=== PATIENT | male | born 1990 | race Caucasian/White ===

== ENCOUNTER 2024-12-14 13:15 | Emergency (ER) | payer MEDICAID, SELFPAY ==
--- NOTE | 2024-12-14 13:24 | XR_ITS ---
Examination: AP chest single view Technique: AP portable sitting chest single view Date and time: December 14, 2024, 1336 hrs. Indications: Chest pain today. Findings: The film does not include the lower right lateral chest. Normal heart size The lungs are clear. The osseous structures are intact Impression: Limited study No pneumonia or pulmonary edema
--- NOTE | 2024-12-14 13:24 | EKG_ITS ---
[facility] Test Date: 2024-12-14 Pat Name: LAURA BUSTILLOS Department: Room: - Gender: Male Marker Hand: : 1990 Requested By: Tenisha Aguilar Order Number: [id number] Reading MD: Tenisha Aguilar Measurements Intervals [place] Rate: 116 P: 66 [place]: 116 QRS: 68 QRSD: 91 T: 60 QT: 295 QTc: 411 Interpretive Statements SINUS TACHYCARDIA WITH SHORT WI INTERVAL ABNORMAL RHYTHM ECG No previous ECG available for comparison /store/S0/[id number]
[2024-12-14 13:25] VITALS: BP 109/72; PULSE 122; RESP 18; TEMP 36.9; O2SAT 96
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
[2024-12-14 13:26] VITALS: BMI 27.7
[2024-12-14 16:00] LABS: Basophils # (Auto) 0.1 Thou/mm3 (0.0-0.2); Basophils % (Auto) 1 % (0-2.5); Eosinophils # (Auto) 0.1 Thou/mm3 (0.0-0.5); Eosinophils % (Auto) 1 % (0-10); Hematocrit 41.4 % (41.0-53.0); Hemoglobin 14.8 g/dL (13.5-16.0); Immature Granulocytes Auto 0.04 Thou/mm3 (0.00-0.00); Lymphocytes # (Auto) 1.9 Thou/mm3 (1.0-4.8); Lymphocytes % (Auto) 26 % (10-50); Mean Corpuscular HGB Conc 35.7 g/dl (31.0-37.0); Mean Corpuscular Hemoglobin 29.8 pg (25.0-35.0); Mean Corpuscular Volume 83 fL (80-100); Monocytes # (Auto) 0.4 Thou/mm3 (0.0-0.8); Monocytes % (Auto) 6 % (0-12); Neutrophils # (Auto) 4.7 Thou/mm3 (1.8-7.7); Neutrophils % (Auto) 65 % (37-80); Nucleated Red Blood Cell # 0.00 Thou/mm3 (0.00-0.00); Nucleated Red Blood Cell % 0 /100 WBC (0); Platelet Count 232 Thou/mm3 (140-440); RDW Standard Deviation 42.4 fL (35.1-43.9); Red Blood Count 4.97 Miln/mm3 (4.50-5.90); White Blood Count 7.2 Thou/mm3 (3.8-10.6)
[2024-12-14 16:24] LABS: Alanine Aminotransferase 22 U/L (10-49); Albumin, Serum 4.3 gm/dL (3.5-5.0); Albumin/Globulin Ratio 1.7 (1.2-2.2); Alkaline Phosphatase 95 U/L (46-116); Anion Gap 12 (7-16); Aspartate Amino Transferase 25 U/L (0-34); BUN/Creatinine Ratio 11 Ratio (12-20); Bilirubin,Total 0.6 mg/dL (0.3-1.2); Blood Urea Nitrogen 10 mg/dL (9-23); Calcium 9.0 mg/dL (8.3-10.6); Calcium (Corrected) 9.0 mg/dL (8.5-10.1); Carbon Dioxide 20.2 mMol/L (20.0-31.0); Chloride 104 mMol/L (98-107); Creatinine (Component) 0.9 mg/dL (0.6-1.3); Estimated Creatinine Clearance 148.1 mL/min (>60); Globulin 2.6 gm/dL (2.3-3.5); Glucose 312 mg/dL (74-106); Lipase 84 U/L (12-53); Osmolality,Calculated 282 (275-295); Potassium 4.4 mMol/L (3.4-5.1); Sodium 136 mMol/L (136-145); Total Protein 6.9 gm/dL (5.7-8.2); Troponin I < 0.020 ng/mL (0.0-0.045); eGFR > 60 See Note
== END 2024-12-14 16:50 ==
PROVIDERS: Physician Assistant Medical; Emergency Provider Emergency Medicine
DX: Z02.89 Encounter for other administrative examinations (principal); E11.65 Type 2 diabetes mellitus with hyperglycemia; R07.9 Chest pain, unspecified; R00.0 Tachycardia, unspecified
CPT/HCPCS: 36415; 71045; 80053; 83690; 84484; 85025; 93005; 99283

== ENCOUNTER 2024-12-16 18:16 | Emergency (ER) | payer MEDICAID, SELFPAY ==
[2024-12-16 18:21] VITALS: BP 148/94; PULSE 81; PULSE 85; RESP 13; RESP 18; TEMP 37.4; O2SAT 96; BMI 25.7
--- NOTE | 2024-12-16 18:21 | EKG_ITS ---
[facility] Test Date: 2024-12-16 Pat Name: LAURA BUSTILLOS Department: Room: - Gender: Male Surgery Scheduler: : 1990 Requested By: ED Temporary Provider Order Number: [id number] Reading MD: ED Temporary Provider Measurements Intervals [place] Rate: 77 P: 59 [place]: 122 QRS: 78 QRSD: 96 T: 74 QT: 367 QTc: 416 Interpretive Statements SINUS RHYTHM Compared to ECG 12/14/2024 13:34:08 Sinus tachycardia no longer present Short [place] interval no longer present /store/S0/[id number]/[id number]
[2024-12-16 18:24] VITALS: BP 140/78; PULSE 89; RESP 18; TEMP 36.8; O2SAT 97
[2024-12-16 18:26] VITALS: BMI 27.7
--- NOTE | 2024-12-16 18:50 | XR_ITS ---
Examination: AP chest single view TECHNIQUE: AP portable sitting chest single view Date and time: December 16, 2024 1903 hours INDICATIONS: Chest pain today. FINDINGS: Normal heart size. The lungs are clear. Mild elevation right hemidiaphragm. No pneumonia or pulmonary edema. IMPRESSION: No active disease.
[2024-12-16 19:13] LABS: Basophils # (Auto) 0.1 Thou/mm3 (0.0-0.2); Basophils % (Auto) 1 % (0-2.5); Eosinophils # (Auto) 0.1 Thou/mm3 (0.0-0.5); Eosinophils % (Auto) 1 % (0-10); Hematocrit 38.5 % (41.0-53.0); Hemoglobin 13.8 g/dL (13.5-16.0); Immature Granulocytes Auto 0.02 Thou/mm3 (0.00-0.00); Lymphocytes # (Auto) 1.8 Thou/mm3 (1.0-4.8); Lymphocytes % (Auto) 25 % (10-50); Mean Corpuscular HGB Conc 35.8 g/dl (31.0-37.0); Mean Corpuscular Hemoglobin 29.7 pg (25.0-35.0); Mean Corpuscular Volume 83 fL (80-100); Monocytes # (Auto) 0.5 Thou/mm3 (0.0-0.8); Monocytes % (Auto) 6 % (0-12); Neutrophils # (Auto) 4.9 Thou/mm3 (1.8-7.7); Neutrophils % (Auto) 67 % (37-80); Nucleated Red Blood Cell # 0.00 Thou/mm3 (0.00-0.00); Nucleated Red Blood Cell % 0 /100 WBC (0); Platelet Count 228 Thou/mm3 (140-440); RDW Standard Deviation 39.8 fL (35.1-43.9); Red Blood Count 4.64 Miln/mm3 (4.50-5.90); White Blood Count 7.2 Thou/mm3 (3.8-10.6)
--- NOTE | 2024-12-16 19:13 | PD.EDCHEST ---
ED Chest Pain RME/HPI General Chief Complaint: Shortness of Breath/Dyspnea Stated Complaint: CHEST PAIN Time Seen by Provider: 12/16/24 18:48 Arrival date/time: 12/16/24 18:16 RME / HPI RME / HPI narrative: DR. VILLEGAS MAIN ED EVALUATION: 34 y/o male with Hx of Type II DM and [place] presents to ED c/o chest pain, shortness of breath, abdominal pain, nausea, and cough x approximately 3 days. Patient endorses a gurgling sensation in his upper abdomen. Patient reports foul smelling and oily bowel movements. Denies diarrhea. Denies fever. Patient is currently on Zyprexa, Prozac, Metformin, and Novolog. States he has recently missed doses of his medications. Related Data Allergies Allergy/AdvReac Type Severity Reaction Status Date / Time No Known Allergies Allergy Verified 12/17/24 08:26 Review of Systems Review of Systems Systems Reviewed: All systems reviewed, normal except as documented Past Medical History Past Medical History ENDOCRINE: Positive Diabetes Mellitus Type 2 PSYCHO/SOCIAL: Positive Depression Social History SMOKING STATUS: Current some day smoker ED Exam Narrative Physical exam: GENERAL APPEARANCE: alert and oriented x 4, well-developed, well-nourished, no acute distress, appears to have poor hygeine VITALS: All vitals were reviewed and the pulse ox is 97% on room air, which is normal according to my interpretation. HEENT: Normocephalic, atraumatic; pupils equal, round, reactive to light; EOMI; mucous membranes pink, moist; oropharynx clear NECK: Supple LUNGS: CTABL; no wheezes, no rales, no rhonchi HEART: Regular rate, regular rhythm; normal S1, S2; no murmurs ABDOMEN: non distended; normal BS; soft, no tenderness, no guarding, no rebound; no masses, no organomegaly, no hernia BACK: no CVA tenderness EXTREMITIES: atraumatic; no edema NEUROLOGIC: awake; alert and oriented x4; cranial nerves II-XII grossly intact; no focal sensory or motor deficits PSYCHIATRIC: appropriate mood and affect SKIN: warm, dry, normal color; no rashes Course Course Course Narrative: CXR is ordered for determining the etiology of shortness of breath. Patient states that he is starting to hear voices. Requesting evaluation by psychiatry. Offered for patient to discuss with social work in AM. Home dose of zyprexa given. Quality Measures none Orders Category Date Time Status Bedside Blood Glucose Q1HR Care 12/16/24 20:26 Completed Hospital Secretary NOW Care 12/16/24 18:50 Completed EKG (ED ONLY) *Do not use* NOW Care 12/16/24 18:21 Completed EKG (ED Only) Stat Exams 12/16/24 18:21 Draft XR chest 1V portable Stat Exams 12/16/24 18:50 Completed Alcohol, Blood Medical Stat Lab 12/16/24 18:50 Completed B-Type Natriuretic Peptide Stat Lab 12/16/24 18:50 Completed Blood Culture (Lab) Stat Lab 12/16/24 18:50 Results CBC Stat Lab 12/16/24 18:50 Completed Comprehensive Metabolic Panel Stat Lab 12/16/24 18:50 Completed Drug Screen,Urine Stat Lab 12/16/24 19:30 Completed Lactate (Lactic Acid) Stat Lab 12/16/24 20:58 Completed Lipase Stat Lab 12/16/24 18:50 Completed Magnesium Stat Lab 12/16/24 18:50 Completed Partial Thromboplastin Time Stat Lab 12/16/24 18:50 Completed Procalcitonin Stat Lab 12/16/24 18:50 Completed Prothrombin Time with INR Stat Lab 12/16/24 18:50 Completed Troponin I Stat Lab 12/16/24 18:50 Completed UA, C/S IF [Urinalysis, C/S if Indicated] Stat Lab 12/16/24 19:30 Completed Magnesium Oxide [Mag-Ox 400] Med 12/16/24 21:41 Discontinued 800 mg PO X1 ONE Magnesium Sulfate 2 GM Ivpb [Magnesium Sulfate Ivpb] Med 12/16/24 20:42 Discontinued 2 gm in 50 ml IV X1 OLANZapine INJ [Zyprexa Inj] 10 mg Med 12/16/24 21:47 Discontinued Sterile Water 2.1 ml IM NOW OLANZapine [ZyPREXA] Med 12/16/24 21:25 Discontinued 20 mg PO X1 ONE Sodium Chloride 0.9% 1000 ml [Ns] 1,000 ml Med 12/16/24 18:54 Discontinued IV 999 mls/hr Sodium Chloride 0.9% 1000 ml [Ns] 1,000 ml Med 12/16/24 20:08 Discontinued IV 999 mls/hr Vital Signs Vital signs: Vital Signs Temperature 99.4 F 12/16/24 18:21 Pulse Rate 81 12/16/24 18:21 Respiratory Rate 13 12/16/24 18:21 Blood Pressure 148/94 H 12/16/24 18:21 Pulse Oximetry (%) 96 12/16/24 18:21 Oxygen Delivery Method Room Air 12/16/24 18:21 Chest Pain MDM Narrative MDM Narrative:: Scribe Attestation: I, Diane Ramirez, am scribing for and in the presence of Dr. Villegas. Provider Notation: Although this document has been carefully reviewed, there may still be some phonetic and other typographical errors.? These errors are purely grammatical due to imperfections in the software program and should not be construed in any way to? compromise the substance of the patient's medical care during this visit. Patient data External records reviewed:: [facility] previous records (Reviewed prior ED records from 12/14/24. Patient was seen for Acute hyperglycemia.) and EMS form Clinical information provided by:: patient and EMS Social determinants that could affect healthcare access:: mental health (Depression) Patient has the following chronic illnesses:: Depression, Type II DM How is presenting disease/condition affected by chronic disease/condition?: no chronic disease Evaluation data The following diagnostics were reviewed and interpreted by me:: lab results, radiology exam(s) and EKG tracing(s) (EKG manual reading, my interpretation: sinus rhythm, rate: 77 bpm, no ST elevation, no acute ischemic changes.) Lab and/or radiology exams considered but not ordered:: None Interpretation Summary: RADIOLOGY Chest X-Ray: FINDINGS: Normal heart size. The lungs are clear. Mild elevation right hemidiaphragm. No pneumonia or pulmonary edema. IMPRESSION: No active disease. Medications / Prescriptions Medications or Prescriptions considered but not ordered:: None Medication administrations:: Medication Administration History Discontinued Medications Olanzapine 10 mg/ Sterile (Water 2.1 ml) 0 mg IM NOW ONE Stop: 12/16/24 21:48 Last Admin: 12/16/24 22:50 Dose: Not Given Documented By: CORY Non-Admin Reason: Other, see note Comments: already given po Sodium Chloride (Ns) 1,000 mls @ 999 mls/hr IV .Q1H1M ONE Stop: 12/16/24 19:54 Last Infusion: 12/16/24 20:00 Dose: Infused Documented By: Admin: 12/16/24 19:25 Dose: 999 mls/hr Documented By: JOSH Sodium Chloride (Ns) 1,000 mls @ 999 mls/hr IV .Q1H1M ONE Stop: 12/16/24 21:08 Last Infusion: 12/16/24 22:05 Dose: Infused Documented By: Admin: 12/16/24 20:55 Dose: 999 mls/hr Documented By: CORY Magnesium Sulfate (Magnesium Sulfate Ivpb) 2 gm in 50 mls @ 25 mls/hr IV X1 ONE Stop: 12/16/24 22:41 Last Admin: 12/16/24 21:44 Dose: 25 mls/hr Documented By: CORY Magnesium Oxide (Magnesium Oxide 400 Mg Tablet) 800 mg PO X1 ONE Stop: 12/16/24 21:42 Last Admin: 12/16/24 22:49 Dose: Not Given Documented By: CORY Non-Admin Reason: Other, see note Comments: already given IV Olanzapine (Olanzapine 5 Mg Tablet) 20 mg PO X1 ONE Stop: 12/16/24 21:26 Last Admin: 12/16/24 22:08 Dose: 20 mg Documented By: BHAKTI See above Consultations Consultation(s) initiated? (list below): No Diagnosis Chest Pain Differential Diagnosis: pneumothorax, stable angina, unstable angina pectoris, atypical chest pain, costochondritis, chest pain, biliary colic and other (Hyperglycemia, Dehydration) Most likely diagnosis given after review of the tests above:: Mild dehydration, Hyperglycemia, Hypomagnesemia Admission Indicated Admission indicated?: not indicated Explain why admission is indicated or not indicated:: Patient does not meet admission criteria. Admission Request Was there a request for admission?: No Disposition Plan Disposition Plan: Discharge Discharge Attestation Discharge Attestation: The patient and all family members were given an opportunity to ask questions and understood the discharge instructions. Discharge instructions specifically effects, indications for sooner follow up or return to the emergency department, and the expected course of current diagnosis. Patient condition: Stable Discharge Plan Plan Patient Disposition: HOME (Self Care) Prescriptions/Referrals Referrals: No Primary/Family,Physician [Primary Care Provider] - In 1 week Problem List Clinical Impression: Dehydration, mild, Hyperglycemia, Hypomagnesemia Patient/Caregiver Discharge Instructions Education Materials: ED Diabetes with High Blood Sugar, ED Dehydration (Adult) Print Language: Salvadorean Stand Alone Forms: [employer]anka Award Info., Patient Portal Info Letter
[2024-12-16 19:23] LABS: INR 1.0 (0.9-1.3); Partial Thromboplastin Time 23.9 Seconds (22.0-36.0); Prothrombin Time 11.0 Seconds (9.0-12.2)
[2024-12-16] MEDS: SODIUM CHLORIDE 0.9% 1000 ML 1,000 ML 999 ML IV ×2 (19:25→20:55)
[2024-12-16 19:27] LABS: B-Type Natriuretic Peptide 35 pg/mL (0-100)
[2024-12-16 19:30] VITALS: BP 132/90; PULSE 76; RESP 17; O2SAT 95
[2024-12-16 19:42] LABS: Collection Type, Urine Clean Catch; Squamous Epithelial Cell,Urine 0 /hpf (0-5)
[2024-12-16 20:00] VITALS: BP 163/110; PULSE 76; RESP 17; O2SAT 97
[2024-12-16 20:01] LABS: Amorphous Crystals,Urine Present (Absent); Bacteria,Urine Rare; Bilirubin,Urine Negative (Negative); Blood,Urine Negative (Negative); Clarity,Urine Clear (Clear/Hazy); Color,Urine Lt-Yellow (Lt Yel-Yel); Culture Indicated,Urine Not Indicated; Glucose, Urine 4+ (Negative); Ketones,Urine Negative (Negative); Leukocyte Esterase,Urine Negative (Negative); Nitrite,Urine Negative (Negative); PH,Urine 7.0 (5.0-7.0); Protein,Urine Negative (Neg - Trace); RBC,Urine 2 /hpf (0-3); Specific Gravity,Urine 1.038 (1.001-1.035); Urobilinogen,Urine Negative mg/dL (0.0-1.0); WBC,Urine < 1 /hpf (0-5)
[2024-12-16 20:22] LABS: Alanine Aminotransferase 17 U/L (10-49); Albumin, Serum 3.9 gm/dL (3.5-5.0); Albumin/Globulin Ratio 1.6 (1.2-2.2); Alcohol, Blood Medical < 10.0 mg/dL (0-10.0); Alkaline Phosphatase 88 U/L (46-116); Anion Gap 10 (7-16); Aspartate Amino Transferase 17 U/L (0-34); BUN/Creatinine Ratio 14 Ratio (12-20); Bilirubin,Total 0.5 mg/dL (0.3-1.2); Blood Urea Nitrogen 11 mg/dL (9-23); Calcium 8.9 mg/dL (8.3-10.6); Calcium (Corrected) 9.0 mg/dL (8.5-10.1); Carbon Dioxide 25.9 mMol/L (20.0-31.0); Chloride 100 mMol/L (98-107); Creatinine (Component) 0.8 mg/dL (0.6-1.3); Estimated Creatinine Clearance 166.6 mL/min (>60); Globulin 2.4 gm/dL (2.3-3.5); Glucose 391 mg/dL (74-106); Lipase 39 U/L (12-53); Magnesium 1.5 mg/dL (1.6-2.6); Osmolality,Calculated 287 (275-295); Potassium 3.9 mMol/L (3.4-5.1); Procalcitonin < 0.04 ng/ml (0.0-0.49); Sodium 136 mMol/L (136-145); Total Protein 6.3 gm/dL (5.7-8.2); Troponin I < 0.020 ng/mL (0.0-0.045); eGFR > 60 See Note
[2024-12-16 20:23] LABS: Amphetamine/Methamp Scrn,U Negative (Negative); Barbiturate Screen,Urine Negative (Negative); Benzodiazepines Screen,Urine Negative (Negative); Benzoylecgonine Screen, Ur Negative (Negative); Fentanyl Screen,Urine Negative (Negative); Opiate Screen,Urine Negative (Negative); THC Screen,Urine Positive (Negative)
[2024-12-16 21:00] VITALS: BP 132/89; PULSE 76; RESP 20; O2SAT 95
[2024-12-16 21:02] LABS: Lactate (Lactic Acid) 0.9 mMol/L (0.4-2.0)
[2024-12-16] MEDS: Magnesium Sulfate 2 GM Ivpb 2 GM/50 ML BAG IV (21:44)
[2024-12-16 22:00] VITALS: BP 152/95; PULSE 77; RESP 16; O2SAT 96
== END 2024-12-16 23:41 | disposition home or self-care (01) ==
PROVIDERS: Emergency Provider Emergency Medicine
DX: E86.0 Dehydration (principal); E11.65 Type 2 diabetes mellitus with hyperglycemia; E83.42 Hypomagnesemia; R07.9 Chest pain, unspecified; R00.0 Tachycardia, unspecified
CPT/HCPCS: 36415; 71045; 80053; 80307; 80320; 81001; 83605; 83690; 83735; 83880; 84145; 84484; 85025; 85610; 85730; 87040; 87177; 87209; 87329; 87338; 93005; 96360; 99284; J3475; J7030; A9270; G0480

== ENCOUNTER 2024-12-17 08:23 | Emergency (ER) | payer MEDICAID, SELFPAY ==
[2024-12-17 08:25] VITALS: BMI 27.7
[2024-12-17 08:32] VITALS: BP 142/80; PULSE 97; RESP 18; TEMP 36.7; O2SAT 99
--- NOTE | 2024-12-17 08:52 | EDRME_ITS ---
Rapid Medical Screening Exam RME Arrival date/time: 12/17/24 08:23 Chief Complaint: Suicidal Time Seen by Provider: 12/17/24 08:32 Vital signs: Vital Signs Temperature 98.0 F 12/17/24 08:32 Pulse Rate 97 12/17/24 08:32 Respiratory Rate 18 12/17/24 08:32 Blood Pressure 142/80 H 12/17/24 08:32 Pulse Oximetry (%) 99 12/17/24 08:32 Oxygen Delivery Method Room Air 12/17/24 08:32 Pulse ox room air 99% Vital signs reviewed by provider: Yes RME Narrative: 34-year-old male presents to the ED with a complaint of suicidal ideation. Tima nagy also tells me that he hears voices telling him to kill himself. Patient had chest pain earlier in the week denies chest pain presently.
[2024-12-17 09:28] LABS: Basophils # (Auto) 0.1 Thou/mm3 (0.0-0.2); Basophils % (Auto) 2 % (0-2.5); Eosinophils # (Auto) 0.1 Thou/mm3 (0.0-0.5); Eosinophils % (Auto) 2 % (0-10); Hematocrit 41.9 % (41.0-53.0); Hemoglobin 14.6 g/dL (13.5-16.0); Immature Granulocytes Auto 0.01 Thou/mm3 (0.00-0.00); Lymphocytes # (Auto) 1.5 Thou/mm3 (1.0-4.8); Lymphocytes % (Auto) 32 % (10-50); Mean Corpuscular HGB Conc 34.8 g/dl (31.0-37.0); Mean Corpuscular Hemoglobin 30.2 pg (25.0-35.0); Mean Corpuscular Volume 87 fL (80-100); Monocytes # (Auto) 0.3 Thou/mm3 (0.0-0.8); Monocytes % (Auto) 7 % (0-12); Neutrophils # (Auto) 2.7 Thou/mm3 (1.8-7.7); Neutrophils % (Auto) 56 % (37-80); Nucleated Red Blood Cell # 0.00 Thou/mm3 (0.00-0.00); Nucleated Red Blood Cell % 0 /100 WBC (0); Platelet Count 200 Thou/mm3 (140-440); RDW Standard Deviation 41.0 fL (35.1-43.9); Red Blood Count 4.83 Miln/mm3 (4.50-5.90); White Blood Count 4.8 Thou/mm3 (3.8-10.6)
[2024-12-17 09:55] LABS: Alanine Aminotransferase 17 U/L (10-49); Albumin, Serum 4.2 gm/dL (3.5-5.0); Albumin/Globulin Ratio 1.8 (1.2-2.2); Alkaline Phosphatase 83 U/L (46-116); Anion Gap 8 (7-16); Aspartate Amino Transferase 15 U/L (0-34); BUN/Creatinine Ratio 10 Ratio (12-20); Bilirubin,Total 0.5 mg/dL (0.3-1.2); Blood Urea Nitrogen 9 mg/dL (9-23); Calcium 9.0 mg/dL (8.3-10.6); Calcium (Corrected) 9.0 mg/dL (8.5-10.1); Carbon Dioxide 30.5 mMol/L (20.0-31.0); Chloride 101 mMol/L (98-107); Creatinine (Component) 0.9 mg/dL (0.6-1.3); Estimated Creatinine Clearance 148.1 mL/min (>60); Globulin 2.4 gm/dL (2.3-3.5); Glucose 315 mg/dL (74-106); Osmolality,Calculated 288 (275-295); Potassium 4.3 mMol/L (3.4-5.1); Sodium 139 mMol/L (136-145); Total Protein 6.6 gm/dL (5.7-8.2); eGFR > 60 See Note
[2024-12-17 10:39] VITALS: BP 139/76; PULSE 71; RESP 18; TEMP 36.6; O2SAT 98
[2024-12-17 15:07] LABS: Collection Type, Urine Clean Catch; RBC,Urine 0 /hpf (0-3); Squamous Epithelial Cell,Urine 0 /hpf (0-5); WBC,Urine 0 /hpf (0-5)
[2024-12-17 15:21] LABS: Alcohol, Urine Negative (Negative); Amphetamine/Methamp Scrn,U Negative (Negative); Barbiturate Screen,Urine Negative (Negative); Benzodiazepines Screen,Urine Negative (Negative); Benzoylecgonine Screen, Ur Negative (Negative); Fentanyl Screen,Urine Negative (Negative); Opiate Screen,Urine Negative (Negative); THC Screen,Urine Positive (Negative)
--- NOTE | 2024-12-17 15:47 | PC.CC ---
Patient is a 34 year-old year old male who presents to the hospital for suicidal ideations. Meri made [id number] contact with patient to complete assessment. ASW introduced self, role, and reason for assessment. ASW disclosed limits of confidentiality as well. Patient appeared alert and oriented to self, place, and situation. Patient made appropriate eye contact with this service writer advisor, presented as depressed with a flat affect. Patient reports he has been having suicidal ideations for the past 3 days with plan and intention to jump off a bridge or on-coming traffic. Patient disclosed he has been having command auditory hallucinations telling him to go murder himself. Per patient, today he could no longer take the voices telling him to harm himself. Per patient, he is from [place], [place] and has been homeless in [facility] [facility] for approximately a month. Patient reports he has not family in [place]. 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 Patient reports he used to be connected and was prescribed Zyprexa and Prozac. At the time of encounter the patient continues to endorse suicidal ideations. Patient denied homicidal ideations, visual and auditory hallucinations. Patient reports he had a suicide attempt 2 years go by OD of a bottle of Aspirin. Patient reports the last time he was on a 5150-hold was approximately a year ago but does not recall what he was placed on a hold for. Patient scored High Risk on the Kaufman Screening. Patient is able to complete his own ADLs and Ambulates independently. Patient reports he is Type 1 Diabetic independent. ASW inquired if this service writer advisor could make contact with his mother, Sivan Flores for collateral information. Patient reports he does not give permission for this service writer advisor to make contact with his mother. ASW discussed safety planning with patient. Patient reports he is afraid for his life and does not think he could keep himself safe. Upon clinical consultation with NETSUITE CONSULTANT, Lauren Velez patient will be placed on a 5150-hold for Danger to Self. ASW provided advisement of 5150-hold to the patient and provided patient with patient?s right handbook. Patient was receptive to advisement. ASW provided update to medical team of 5150-hold and discharge plan to [facility] Facility. ASW to send referral via [employer].
[2024-12-17 15:58] LABS: Bilirubin,Urine Negative (Negative); Blood,Urine Negative (Negative); Clarity,Urine Clear (Clear/Hazy); Color,Urine Lt Yellow (Lt Yel-Yel); Culture Indicated,Urine Not Indicated; Glucose, Urine 3+ (Negative); Ketones,Urine Trace (Negative); Leukocyte Esterase,Urine Negative (Negative); Nitrite,Urine Negative (Negative); PH,Urine 7.5 (5.0-7.0); Protein,Urine Negative (Neg - Trace); Specific Gravity,Urine 1.015 (1.001-1.035); Urobilinogen,Urine 0.2 mg/dL (0.0-1.0)
[2024-12-17 16:19] VITALS: BP 149/86; PULSE 90; RESP 16; TEMP 36.8; O2SAT 96
--- NOTE | 2024-12-17 17:09 | PC.NURSE ---
Report given to Ellis at [facility]. Patient will need IV fluids given and BP recheck before Facility can make decision to accept. No further questions. Patient vital signs stable. Patient alert and oriented. Patient has history of paranoid schizophrenia. Patient has not been taking his Zyprexa 5 mg PO Daily medication for about one month. Patient is also supposed to be taking Novolog 15 units three times a day and NPH insulin 45 units at . Ellis made aware. Plan of care ongoing
[2024-12-17] MEDS: SODIUM CHLORIDE 0.9% 1000 ML 1,000 ML 999 ML IV (17:21)
--- NOTE | 2024-12-17 17:30 | PD.EDSUICD ---
ED Psych RME/HPI General Chief Complaint: Suicidal Stated Complaint: PT STATES HE HAS SI AND HEARING VOICES Time Seen by Provider: 12/17/24 08:32 Arrival date/time: 12/17/24 08:23 Limitations: no limitations RME / HPI RME / HPI Narrative: 34-year-old male who states he has a history of schizophrenia and diabetes is here today for suicide ideation. He states he is hearing voices telling self to kill himself. States the voices are telling him to either jump off a bridge, eat rat poison, or shoot himself. He states he does not have access to any firearms. He is currently homeless and from [place], [place]. He states he was out here visiting, but his vehicle got towed, and he is currently home without housing. He has no access to his medications. He states he has taken Zyprexa in the past but is currently not taking that now. He has not take any medications for his diabetes. He states he has been scratching on his arms but has no other self-harm. He has no other acute complaints or concerns. Related Data Allergies Allergy/AdvReac Type Severity Reaction Status Date / Time No Known Allergies Allergy Verified 12/17/24 08:26 Review of Systems Review of Systems Systems Reviewed: All systems reviewed, normal except as documented ED Exam General Limitations: Present no limitations General appearance: Present alert and in no apparent distress Head Head exam: Present atraumatic Eye Eye exam: Present normal appearance, PERRL and EOMI ENT ENT exam: Present normal exam, normal oropharynx and mucous membranes moist Neck Neck exam: Present normal inspection, full ROM and trachea midline Chest Chest inspection: Present normal inspection and symmetric chest wall rise Respiratory Respiratory exam: Present normal lung sounds bilaterally Cardiovascular Cardiovascular exam: Present regular rate, normal rhythm and normal heart sounds Abdominal Exam Abdominal exam: Present soft and normal bowel sounds Extremities Exam Extremities exam: Present normal inspection and full ROM Back Exam Back exam: Present normal inspection and full ROM Neurological Exam Neurological exam: Present alert and oriented X3 Psychiatric Psychiatric exam: Present depressed and flat affect Skin Skin exam: Present warm, dry, normal color and other (Superficial abrasions of the bilateral forearms along the dorsal aspect.) Course Quality Measures none Orders Category Date Time Status Bedside COVID-19 Antigen Test NOW Care 12/17/24 17:53 Completed Consult Registered Mail Clerk NOW Care 12/17/24 08:54 Completed Glucose [Bedside Blood Glucose] NOW Care 12/17/24 17:44 Completed IV [Insert IV] NOW Care 12/17/24 16:32 Completed Alcohol, Urine Stat Lab 12/17/24 15:01 Completed CBC Stat Lab 12/17/24 09:14 Completed CMP [Comprehensive Metabolic Panel] Stat Lab 12/17/24 09:14 Completed Drug Screen,Urine Stat Lab 12/17/24 15:01 Completed UA, C/S IF [Urinalysis, C/S if Indicated] Stat Lab 12/17/24 15:01 Completed Morphine Inj Med 12/17/24 16:32 Discontinued 1 mg IVP X1 ONE OLANZapine [ZyPREXA] Med 12/17/24 17:26 Discontinued 10 mg PO X1 ONE Sodium Chloride 0.9% 1000 ml [Ns] 1,000 ml Med 12/17/24 16:28 Discontinued IV 999 mls/hr metFORMIN [Glucophage] Med 12/17/24 17:35 Discontinued 850 mg PO X1 ONE Vital Signs Vital signs: Vital Signs Temperature 98.0 F 12/17/24 08:32 Pulse Rate 97 12/17/24 08:32 Respiratory Rate 18 12/17/24 08:32 Blood Pressure 142/80 H 12/17/24 08:32 Pulse Oximetry (%) 99 12/17/24 08:32 Oxygen Delivery Method Room Air 12/17/24 08:32 Psych MDM Narrative MDM Narrative:: 34-year-old male who states he has a history of schizophrenia and diabetes is here today for suicide ideation. He states he is hearing voices telling self to kill himself. States the voices are telling him to either jump off a bridge, eat rat poison, or shoot himself. He states he does not have access to any firearms. He is currently homeless and from [place], [place]. He states he was out here visiting, but his vehicle got towed, and he is currently home without housing. He has no access to his medications. He states he has taken Zyprexa in the past but is currently not taking that now. He has not take any medications for his diabetes. He states he has been scratching on his arms but has no other self-harm. He has no other acute complaints or concerns. On exam patient is nontoxic-appearing. He is cooperative. His affect is flat and depressed. His vital signs are stable. His work appears unremarkable with exception of a hyperglycemia of 315. His bicarb is 30.5. Patient is given a bolus of IV fluids here. He is given a dose of Zyprexa. I do believe he is stable for further mental health management. He is medically cleared. Patient data External records reviewed:: None Clinical information provided by:: patient Social determinants that could affect healthcare access:: mental health Patient has the following chronic illnesses:: Diabetes, schizophrenia How is presenting disease/condition affected by chronic disease/condition?: exacerbated by Evaluation data The following diagnostics were reviewed and interpreted by me:: lab results (Hyperglycemia 315 otherwise unremarkable.) Lab and/or radiology exams considered but not ordered:: n/a Interpretation Summary: Hyperglycemia Medications / Prescriptions Medications or Prescriptions considered but not ordered:: n/a Medication administrations:: Medication Administration History Discontinued Medications Sodium Chloride (Ns) 1,000 mls @ 999 mls/hr IV .Q1H1M ONE Stop: 12/17/24 17:28 Last Infusion: 12/17/24 18:22 Dose: Infused Documented By: Admin: 12/17/24 17:21 Dose: 999 mls/hr Documented By: JOHN Metformin HCl (Metformin 850 Mg Tablet) 850 mg PO X1 ONE Stop: 12/17/24 17:36 Last Admin: 12/17/24 18:11 Dose: 850 mg Documented By: JOHN Morphine Sulfate (Morphine Sulf Inj 10 Mg/Ml Vial) 1 mg IVP X1 ONE Stop: 12/17/24 16:33 Last Admin: 12/17/24 16:52 Dose: Not Given Documented By: JOHN Non-Admin Reason: Wrong Patient Olanzapine (Olanzapine 5 Mg Tablet) 10 mg PO X1 ONE Stop: 12/17/24 17:27 Last Admin: 12/17/24 18:11 Dose: 10 mg Documented By: JOHN See above Consultations Consultation(s) initiated? (list below): No Diagnosis Psych Differential Diagnosis: chronic schizophrenia, bipolar disorder, drug-induced psychotic disorder and acute anxiety Most likely diagnosis given after review of the tests above:: Hyperglycemia, schizophrenia, suicide ideation Admission Indicated Admission indicated?: indicated Explain why admission is indicated or not indicated:: Patient was seen and evaluated by our social media coordinator who is placed the him on a [id number]. Placement is pending. Admission Request Was there a request for admission?: No Disposition Plan Disposition Plan: Transfer Discharge Plan Plan Patient Disposition: [facility] Discharge Disposition comment: ANDREW Patient condition on transfer: Stable Prescriptions/Referrals Referrals: No Primary/Family,Physician [Primary Care Provider] - In 1 week Problem List Clinical Impression: Diabetes, Schizophrenia, Suicide ideation Patient/Caregiver Discharge Instructions Print Language: Grenadian Stand Alone Forms: Blanka Award Info., Patient Portal Info Letter
--- NOTE | 2024-12-17 17:55 | PC.CC ---
[facility], nurse to nurse to occur [phone]. The accepting facility is requesting a COVID-bedside RN is completing COVID. Patient was provided with accepting information. Medical team was provided with accepting information. ASW to arrange transportation.
--- NOTE | 2024-12-17 18:16 | PC.NURSE ---
Per [facility] they will accept patient with Finger Stick blood glucose of 255. Patient just received 850mg PO metformin and Zyprexa that was ordered by MD. Corral at [facility]. Patient given dinner tray.
--- NOTE | 2024-12-17 19:14 | PC.NURSE ---
Report called to RICHARD Gordon at [facility] in [place]. No further questions. Night nurse RICHARD العراقي made aware.
[2024-12-17 20:08] VITALS: BP 125/76; PULSE 69; RESP 18; TEMP 36.4; O2SAT 98
--- NOTE | 2024-12-17 23:33 | PC.NURSE ---
Jahaira MORAN requesting provider notes not found in packet, packet faxed over as requested
== END 2024-12-17 20:21 ==
PROVIDERS: Physician Assistant; Emergency Provider Emergency Medicine
DX: R45.851 Suicidal ideations (principal); F20.9 Schizophrenia, unspecified; Z59.00 Homelessness unspecified; E11.65 Type 2 diabetes mellitus with hyperglycemia
CPT/HCPCS: 36415; 80053; 80307; 80320; 81001; 83605; 85025; 87811; 96127; 96360; 99283; J7030; A9270; G0480